=== PATIENT | male | born 1960 | race Caucasian/White ===

== ENCOUNTER 2016-06-10 11:00 | Outpatient (RCR) | payer OTHER, BC ==
--- NOTE | 2016-05-12 13:24 | PT/OT/ST INITIAL EVALUATION ---
[facility], [facility]. PHYSICAL/OCCUPATIONAL THERAPY [address] [place] [id number] PLAN OF CARE/ASSESSMENT FOR OUTPATIENT REHABILITATION (Complete for Initial Claims Only) 1. PATIENT'S NAME Efrain Doty 2. ACC # [id number] 3. HICN 4. PRIMARY DX S52.571D -other intraarticular fracture of lower end of right radius subsequent encounter for closed fracture with routine healing. 5. SECONDARY DX 6. TREATMENT DX Weakness, localized edema, stiffness of right wrist 7. ONSET DATE 03/12/2016 8. REFERRAL DATE 04/21/2016 9. SOC. DATE 05/08/2016 10. TIME OF EVAL 10:00 a.m. to 11:10 a.m. 11. TOTAL TIME/UNITS 30 evaluation- [id number] low complexity 15 vasopneumatic device 15 therapeutic exercise 10 manual therapy 12. G. CODES Not applicable 13. PRIOR LEVEL OF FUNCTION; PERTINENT HISTORY (Prior therapy results, reason for referral.) Description/mechanism of injury: The patient is a 56-year-old male referred by Dr. Umesh Doty to address occupational concerns following distal radius fracture. Description/mechanism of injury: The patient reports on 03/12/16, plumbing a knee-high wall with a tightened bar clamp and reports bar clamp coming undone, resulting in patient falling off of an 8-foot ladder. The patient reports going to the emergency room and was given a splint. The patient completed x-ray testing with results indicating closed fracture of the right radial bone. The patient completed surgery on 03/25/2015. Synthetic bone and 2 pins were inserted during surgery. Pt wore a short arm cast for 4 weeks following. The patient had screws taken out on 04/28/2016 with short-arm cast replaced until 05/05/16 where pt's last cast was removed. Home set up/Prior level of function: The patient lives with his spouse and son. Prior to onset, the patient was independent with ADLs and IADLs including work tasks. Current functional performance and deficits: Since onset, the patient reports difficulty using right hand with all daily activities secondary to increased pain and wrist stiffness. The patient reports difficulty eating, cutting food with knife, opening jars, manipulating and carrying everyday items and turning car barcenas in ignition. The patient reports waking up multiple times at night due to pain. 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 Pain level and location: 2/10 at rest, 6/7 with movement at right wrist Aggravating factors: Moving wrists in all directions. Relieving factors: None. Diagnostic tests: X-ray testing and CT scan completed. Personal health rating: Good PMH (PT/OT Hospitalizations): Bone fracture. The patient has previously completed physical and occupational therapy for following back surgery and left wrist fracture, respectively. Medications: The patient occasionally takes Advil or ibuprofen. No medication to complicate therapy. Patient's goal: The patient's goal is to get back to working with both hands with no difficulty. 14. INITIAL ASSESSMENT/SAFETY PRECAUTIONS/MEDICAL COMPLICATIONS (Level of function at start of care. Be specific, use objective measures, list problems.) O: APPEARANCE/OBSERVATION: The patient appeared to his initial occupational therapy evaluation this date. Upon observation the patient demonstrated noted edema in the dorsal part of right hand and distal forearm. Demonstrated a 2.5 cm scar, light purple in color with no evidence of raised scarring. During opposition testing, the patient demonstrated difficulty with opposing 5th digit and reports pull along thenar region. During tendon glides, pt demonstrated difficulty with completing a straight fist and composite fist. During testing, the pt was noted to have extrinsic extensor tightness. Patient demonstrates limited passive and active movement of wrist secondary to wrist stiffness and increased pain levels with movement. RANGE OF MOTION/FLEXIBILITY: -Wrist flexion right 25 degrees, left 45 degrees -Wrist extension right 15 degrees, left 62 degrees -Supination 56 degrees, left 90 degrees -Pronation right 90 degrees, left 90 degrees -Ulnar deviation right 14 degrees, left 25 degrees -Radial deviation 4 degrees right, left 15 degrees. ASSESSMENTS: 9-hole peg score- right 22.24 seconds, left 28.3 seconds. CIRCUMFERENCE/EDEMA: Wrist crease right 19.6 cm, left 17.8 cm. 5 cm from wrist, right 19.3 cm, left 18.0 cm. Figure 8 technique right 47.8 cm, left 45.9 cm. STRENGTH TESTING: Strength testing not completed at this time secondary to contraindications for healing of fracture. Will complete once appropriate and approved by the physician. QuickDASH: The QuickDASH was completed this date which is standardized assessment with a score of 61.36. A score of 0 indicates no difficulties or limitations with daily activities or leisure tasks. The patient reports his maximum pain in the past 24 hours as 2/10. PALPATION: The patient reports no tenderness to palpation along wrist or forearm area. SENSATION: The patient reports occasional tingling in thumb and pinky and occasional stabbing sensation along scar area. CONTRAINDICATIONS, PRECAUTIONS AND OBSTACLES TO DELIVERY OF CARE: The therapist to be noted of patient's restrictions at this time, which include no pushing, pulling, or assisting with lifting of greater than 5 pounds. INFORMED CONSENT: The occupational therapist discussed the OT diagnosis, prognosis, treatment plan, and expected outcome with the patient. The patient agreed to OT plan of care this date. TODAY'S TREATMENT: Included education about occupational therapy and the occupational therapy process. Additionally provided education on a home program which included both passive stretching of right hand and wrist, as well as active movements focused on maintaining stretch at end range holding for 20 to 30 seconds. The patient completed all exercises for home program to ensure proper technique. Completed soft tissue mobilization with use of a tool along scar area to reduce adhesions for increased range of motion and movement of wrist. Moderate grittiness noted along around and along scar. Provided education on edema management techniques including use of superficial cold and contrast baths to reduce thickness and reduce edema. Completed vasopneumatic device along right forearm/wrist to decrease edema. 15. INITIAL POC: (Specify procedures, modalities, short and halfway goals) A: OT DIAGNOSIS: The patient presents with decreased strength, wrist stiffness, limited active movement, increased pain levels and localized edema along wrist and forearm secondary to distal radius fracture. The patient would benefit from skilled occupational therapy services for design and administration of therapeutic activities and exercises for return to prior level of function and independence. PROBLEMS/IMPAIRMENT/FUNCTIONAL LOSS: Decreased ability to use right hand during daily activities including handling, manipulating and carrying everyday objects, which impacts the patient's ability to complete all daily activities independently. Additionally the patient is off work secondary to inability to complete work tasks. INTENDED OUTCOMES: Include reduce pain levels and edema, reduce wrist stiffness, increase active movement and strength of right hand/wrist for return to all activities with independence. REHAB POTENTIAL/PROGNOSIS: Good based on patient's ability to follow therapist's recommendations and complete home exercise program. PLAN: Plan to treat the patient 1 time a week for initial evaluation followed by 2 times a week for 4 weeks to address occupational concerns following distal radius fracture. The treatment is to include modalities, manual therapy, soft tissue mobilization, therapeutic exercise, active range of motion, passive range of motion, therapeutic activities, ADLs/self-care, patient education/home exercise program and other treatments as indicated. SHORT TERM GOALS X2 WEEKS: 1. The patient will verbalize and demonstrate compliance with home exercise program. 2. The patient will demonstrate an increase in wrist flexion and extension of 15 degrees or greater to increase ease of completing daily tasks. SENIOR LIVING GOALS: 1. The patient will report a decrease in QuickDASH score of 15 to 20 points to indicate a meaningful change and increased independence with daily activities and work tasks. 2. The patient will demonstrate ability to manipulate 8 out of 10 everyday items/containers with right hand to increase ease of manipulating everyday items. 3. The patient will demonstrate ability to use right hand to cut food independently. 16. PHYSICIAN SIGNATURE ? ON FILE OR ENTER HERE: 17. DATE: I certify the need for these services furnished under this plan of care and if for partial hospitalization. 18. CERTIFICATION FROM THROUGH
[~2016-06-10 11:00] MED LIST: CEPH-331 PO
== END 2016-06-20 12:00 | disposition home or self-care (01) ==
LOC: OT 11:00
PROVIDERS: ATTEND Orthopaedic Surgery
DX: S52.571D Other intraarticular fracture of lower end of right radius, subsequent encounter for closed fracture with routine healing (principal); W11.XXXD Fall on and from ladder, subsequent encounter; Y93.89 Activity, other specified; Y92.89 Other specified places as the place of occurrence of the external cause; Y99.0 Civilian activity done for income or pay